=== PATIENT | male | born 1945 | race Caucasian/White ===

== ENCOUNTER 2016-07-29 06:53 | Day surgery (SDC) | payer OTHER ==
[2016-07-29] VITALS (10 sets, daily range): BP systolic 115–144; BP diastolic 62–79; PULSE 59–64; RESP 13–18; O2SAT 91–97
[~2016-07-29] VITALS: Ht 181.6 cm; Wt 106.5 kg
[~2016-07-29 06:53] MED LIST: AMLO10TA3 PO; ASCO-294 PO; ASPI-973 PO; ATEN100T PO; FINA5TAB9 PO; GLUC1CAP13 PO; HYDR25TA4 PO; LISI-567 PO; LOVA40TA PO; MAGN250T PO; MULT-1018 PO; OMEP20CA11 PO; TAMS0.4C98 PO; VITA150T PO
[2016-07-29] MEDS ORDERED: Ondansetron 2 mg/mL 2 mL Inj ONE (06:54)
[2016-07-29] MEDS ORDERED: EPHEDrine/NS 5 mg/mL 5 mL Syringe ONE (06:54)
[2016-07-29] MEDS ORDERED: Dexamethasone 4 mg/mL Inj ONE (06:54)
[2016-07-29] MEDS: Lactated Ringer's 1,000 ML IV SCH ×2 (07:01→09:22)
[2016-07-29] MEDS: Levofloxacin 500 mg/100 mL D5W IV SCH ×2 (09:22→09:24)
--- NOTE | 2016-07-29 10:01 | PCM.HPANE ---
Patient Data Surgeon Admitting Provider: Attending Provider:Amanda Harmon MD Primary Care Physician:Rich Carson MD Other Provider:[facility] Anesthesia Reason for Visit Acute Urinary Retention Ht/WT & BMI Height (Feet): 5 Height (Inches): 11.5 Weight (Kilograms): 106.5 Body Mass Index 32.00 Allergies Coded Allergies: No Known Allergies (Unverified , 05/17/16) Past Anesthesia History Anesthesia History: Denies:: Abnormal Airway, Anesthesia Reactions, Difficult Intubation, Fam Anesthesia Reaction Diabetes History Hx Diabetes?: No Type of Diabetes: Diet Controlled MRSA MRSA: No Medications Blood Thinner: Aspirin Hypertension Medication: Yes Home Meds Incl Beta Uma: Yes Date Beta Uma Taken: Jul 29, 2016 Time Beta Uma Taken: 529 Reported Medications Ascorbate Calcium (Vitamin C)500 Mg [id number] Mg PO DAILY 07/26/16 Tamsulosin (Flomax)0.4 Mg Capsule0.8 Mg PO DAILY Ref 0 07/26/16 Vitamin B Complex & Vit C No.4 (Super B Complex)150 Mg Ttuneh147 Mg PO DAILY 07/26/16 Omeprazole 20 Mg Capsule.dr20 Mg PO DAILY Ref 0 07/26/16 Multivitamin (Multi Vitamin Daily)1 Each Tablet1 Each PO DAILY 30 Days Ref 0 07/26/16 Magnesium 250 Mg Fxwfme538 Mg PO DAILY 07/26/16 Lovastatin 40 Mg Kkdygx41 Mg PO HS #30 TABLET Ref 0 07/26/16 Lisinopril 20 Mg Feqekn91 Mg PO DAILY 30 Days Ref 0 07/26/16 Hydrochlorothiazide 25 Mg Owsrsr77 Mg PO DAILY 30 Days Ref 0 07/26/16 Gluc HCl/Csa/Maximus Hy/Hyalur AC (Glucosamine Chondroitin Cap)1 Each Capsule1 Each PO DAILY 07/26/16 Finasteride 5 Mg Tablet5 Mg PO DAILY 30 Days Ref 0 07/26/16 Atenolol 100 Mg Jrizxp456 Mg PO DAILY Ref 0 07/26/16 Aspirin 81 Mg Zlxuth47 Mg PO DAILY Ref 0 07/26/16 Amlodipine 10 Mg Pvtqeg26 Mg PO DAILY Ref 0 07/26/16 Discontinued Scripts Tamsulosin (Flomax)0.4 Mg Capsule0.4 Mg PO DAILY #14 CAPSULE Ref 0 Prov:Jerrod Méndez DO 05/17/16 Cephalexin (Keflex)500 Mg Stgvkli360 Mg PO QID #28 CAPSULE Prov:Jerrod Méndez DO 05/17/16 History HEENT History: Positive for:: Hearing Problem Denies:: Abnormal Airway Cataracts Difficult Intubation Dysphagia Glaucoma Sinus Problem TMJ Cardiovascular History: Positive for:: Hypertension Denies:: AICD Abdominal Aortic Aneurism Cardiac Surgery Chest Pain Coronary Artery Disease Edema Heart Murmur Irregular Heartbeat Pacemaker Peripheral Vascular Hx of Respiratory Problem?: No Respiratory History: Denies:: Asthma COPD Emphysema Oxygen Administration Pneumonia Tuberculosis Use of C-PAP Machine Use of Inhalers / NEBS Hx Neurologic Problems?: No Neurological History: Denies:: CVA Dementia Dizziness Headaches Multiple Sclerosis Parkinson's Disease Seizures TIA Hx of GI Problems?: Yes Gastrointestinal History: Positive for:: Gastroesphageal Reflux Heartburn Denies:: Cirrhosis Gall Bladder Disease Hepatitis Liver Disease Rectal Bleeding Hx of Problems?: Yes Genitourinary History: Denies:: Kidney Stones Urinary Tract Infection Other Pertinent History: urinary retention current admission problem, current indwelling baig Male Hx: Positive for:: Prostate Problems (BPH current admission problem) Denies:: Scrotal Mass Testicular Surgery Skin History: Denies:: History Skin Disorders? (rash- near catheter bag) Pressure Ulcers Hx Musculoskeletal Problems?: Yes Musculoskeletal History: Positive for:: Back Injury (hx back surgery) Osteoarthritis (fingers) Denies:: Fibromyalgia Joint Replacement Myasthenia Gravis Systemic Lupus Hx of Psycho/Social Problems?: No Psycho Social History: Denies:: Anxiety Hx Depression Hx Surgeries?: Yes (back, knee) Hx Any Other Health Problems?: Yes Other History: Denies:: Cancer Thyroid Disease History Blood Transfusions: Positive for:: Accept Blood Products? Denies:: Blood Transfusions Hx Diabetes: No Hx Alcohol Use: No (former- not for 6 years)Hx Substance Use: NoHave You Smoked inLast 12 mo: No Stop/Bang Treated for Sleep Apnea?: No Do You Have a CPAP Machine?: No S-Snoring: Do You Snore Loudly: No T-Tired: feel tired, fatigued: No O-Obsered: Observed not breath: No P-Blood Pressure: treated: Yes B- Body Mass Index > 35 kg/m2: No A- Age over 50: Yes N- Neck Large Circumference: No G- Gender Male: Yes ANDREW Total Score: 3 Risk Assessment Category Category 1A: Patient has history of documented sleep apnea, and HAS NOT received any narcotic, sedative or anesthesia administration during this stay. Category 1B: Patient has history of documented sleep apnea, and HAS received any narcotic , sedative or anesthesia administration during this stay Category 2: Patient has SUSPECTED Obstructive Sleep Apnea, and HAS received any narcotic , sedative or anesthesia administration during this stay. Category 3: Patient has SUSPECTED Obstructive Sleep Apnea and HAS NOT received narcotic, sedative or anesthesia administration during this stay. Category 4: Outpatient in Procedural Areas with known sleep apnea or who screen positive for High Risk via the STOP/BANG questionnaire. Exam Exam Vital Signs Vital Signs Date Time Temp Pulse Resp B/P Pulse Ox O2 Delivery O2 Flow Rate FiO2 07/29/16 07:09 36.0 64 18 144/79 97 Room Air General Appearance: Alert, Oriented X3, Cooperative, No Acute Distress HEENT/AIRWAY: MP 2 Lungs: Clear to Auscultation, Normal Air Movement Heart: Exam Unremarkable, Regular Rate/Rhythm, No Murmurs/Rubs/Gallops Meds/Labs/Diagnostics Admission Meds Current Medications Lactated Ringer's (Lr) 1,000 ml @ 120 mls/hr Q8H20M IV Last administered on t 09:22; Start 07/29/16 at 05:00; Stop 07/29/16 at 13:19 Plan Impression Patient chart reviewed, patient interviewed and anesthestic plan with risks, benefits, and alternatives discussed, and informed consent obtained. NPO Status: 07/28/161929 ASA Physical Status: ASA2 Mod Systemic Disease Anesthetic Plan: GA Bene/Risks/Altern/Consents: Yes HP Complete Prior to Induction: Yes Marquez Fitzgerald MD Jul 29, 2016 10:01
[2016-07-29] MEDS ORDERED: Lactated Ringer's 500 ML IV PRN (10:03)
[2016-07-29] MEDS ORDERED: Lactated Ringer's 1,000 ML IV SCH (10:03)
[2016-07-29] MEDS ORDERED: Phenylephrine 10,000 mCg/mL Inj IVPUSH PRN (10:05)
[2016-07-29] MEDS ORDERED: Dexamethasone 4 mg/mL Inj IVPUSH PRN (10:05)
[2016-07-29] MEDS ORDERED: EPHEDrine Sulfate 50 mg/mL Inj IVPUSH PRN (10:05)
[2016-07-29] MEDS ORDERED: Labetalol 5 mg/mL 4 mL Inj IV PRN (10:05)
[2016-07-29] MEDS ORDERED: HYDROmorphone 1 mg/mL Inj IVPUSH PRN (10:05)
[2016-07-29] MEDS ORDERED: MetoCLOpramide 5 mg/mL 2 mL Inj IVPUSH PRN (10:05)
[2016-07-29] MEDS: fentaNYL-PF 50 mCg/mL 2 mL Inj IVPUSH PRN ×2 (11:34→11:43)
[2016-07-29] MEDS ORDERED: HYDROcodone-APAP 5-325 mg Tablet PO PRN (11:35)
--- NOTE | 2016-07-29 11:52 | OP ---
[address] [address] OPERATIVE REPORT PATIENT: KAZ LYNCH : 1945 MR#: [id number] ADMIT: 07/29/2016 JOB ID: [id number] DATE OF SURGERY: 07/29/2016 PREOPERATIVE DIAGNOSIS(ES): Urinary retention. POSTOPERATIVE DIAGNOSIS(ES): Urinary retention. PROCEDURE PERFORMED: Cystoscopy and transurethral resection of prostate. SURGEON: Amanda Harmon MD ENVELOPE FOLDING MACHINE OPERATOR: None. FINDINGS: 1. Bilateral orthotopic ureteral orifices. 2. Large intravesical lobe of prostate. 3. Coapted lobes of the prostate with the right lobe quite spherical in morphology and very much obstructing the urethral lumen. ANESTHESIA: General. ESTIMATED BLOOD LOSS: Less than 20 mL. DRAIN: An 18-Kyrgyz coude catheter to the bladder. SPECIMENS: Prostate chips. COMPLICATIONS: None. CONDITION: Stable. INDICATION FOR PROCEDURE: The patient is a 70-year-old gentleman with urinary retention reliant on Banuelos catheter. He has failed medical management and multiple voiding trials. DESCRIPTION OF PROCEDURE: After informed consent was obtained, the patient was taken to the operating room. A time-out was performed identifying correct patient, surgical site, and procedure. General anesthesia was smoothly induced. He was given intravenous antibiotics just prior to the start of the procedure. He was placed in the lithotomy position. All pressure points were identified and appropriately padded. His genitals were then prepped and draped in the usual sterile fashion. A 26-Kyrgyz resectoscope was applied to the patient's urethra and advanced into the bladder. The bladder was drained. Both ureteral orifices were seen in orthotopic position. The bladder base was hyperemic with large blood vessels coursing through it. There was a large intravesical lobe seen. There was hypertrophy of both right and left lobes within the urethral lumen, though the right prostatic lobe was extremely large and spherical. A 24-Kyrgyz resecting loop was used to resect the right and left lobes in piecemeal fashion from the bladder neck to just proximal to the verumontanum. The intravesical lobe was also resected in piecemeal fashion. An KOPIS MOBILE evacuator was used throughout the procedure to evacuate the prostate chips. The ureteral orifices were identified multiple times through the procedure and at the termination procedure, they were seen and left as undisturbed. There was excellent hemostasis at the end of the procedure. An 18-Kyrgyz coude catheter was placed into the patient's bladder and insufflated with 20 cc of sterile water and set to dependent drainage. The patient was then reversed from general anesthesia and taken to the PACU in good and stable condition. MARIA DE JESUS
--- NOTE | 2016-07-29 13:21 | PCM.ANEP1 ---
Post Anesthesia Phase 1 PACU Phase 1 Assessment Vital Signs Vital Signs Date Time Temp Pulse Resp B/P Pulse Ox O2 Delivery O2 Flow Rate FiO2 07/29/16 12:11 36.4 62 16 115/73 93 Nasal Cannula 2 07/29/16 12:06 60 16 118/66 92 Room Air 07/29/16 11:50 36.9 59 15 120/62 93 Nasal Cannula 3 07/29/16 11:40 60 15 121/64 93 Nasal Cannula 3 07/29/16 11:35 60 13 120/68 92 Nasal Cannula 3 07/29/16 11:30 60 15 118/68 93 Nasal Cannula 3 07/29/16 11:25 63 15 117/69 92 Nasal Cannula 3 07/29/16 11:20 37.0 63 15 115/66 91 Nasal Cannula 2 07/29/16 07:09 36.0 64 18 144/79 97 Room Air Anesthetic Administered: GA Level of Alertness: Awake, talking MERAZ's with Equal Strength: Yes Pain: No Nausea or Vomiting: No Oxygen Delivery: Nasal Cannula Lungs: Clear to Auscultation, Normal Air Movement Dermatome Level: Full Sensation Marquez Fitzgerald MD Jul 29, 2016 13:21
--- NOTE | 2016-07-29 13:22 | PCM.ANEP2 ---
Post Anesthesia Evaluation ASA/CMS Post Anesthesia VS in Patient's Normal Range?: Yes Resp Stable; Airway Patent?: Yes CV Function & Hydration Stable: Yes Mental Status Recovered?: Yes Pain control Satisfactory?: Yes N/V Control Satisfactory?: Yes Marquez Fitzgerald MD Jul 29, 2016 13:22
--- NOTE | 2016-08-01 16:41 | PATH ---
SURGICAL PATHOLOGY Attending Physician:Amanda Harmon, CASE STATUS: Signed Out PATIENT NAME: KAZ LYNCH PID: [id number] : 1945 DATE COLLECTED:07/29/2016 00:00 SPECIMEN: Prostate, Chips CLINICAL HISTORY: ACUTE URINARY RETENTION 1). RESECTED PROSTATE FINAL DIAGNOSIS: Prostate, TUR Fragments: Benign fibroglandular hyperplasia. No evidence of malignancy. ICD10 N40.1 GROSS DESCRIPTION: The specimen is received in formalin, labeled with the patient's name, sublabeled as resected prostate and consists of multiple fragments of ye-white rubbery prostatic tissue (22.8 g, 7.5 x 6.5 x 1.7 cm in aggregate). Section code: (A-G) prostatic tissue, treasury representative. 07/30/16 MICRO DESCRIPTION: Please see diagnosis. ICD-9 CODES: CPT CODES: 1: 63639 Electronically Signed Out Bridgett Matos MD [facility] Pathology [facility] [address], [place] [address] Technical component performed at [facility], [facility] [address], [place], [address]
== END 2016-07-29 23:59 | disposition home or self-care (01) ==
LOC: SAS 06:53
PROVIDERS: ATTEND Urology
DX: N40.1 Benign prostatic hyperplasia with lower urinary tract symptoms (principal); N36.8 Other specified disorders of urethra; R33.9 Retention of urine, unspecified; I10 Essential (primary) hypertension; K21.9 Gastro-esophageal reflux disease without esophagitis; Z87.891 Personal history of nicotine dependence; Z79.82 Long term (current) use of aspirin
CPT/HCPCS: 52601; J1100; J2405; J3010; J7120

== ENCOUNTER 2017-02-24 17:41 | Inpatient (IN) | payer OTHER, MEDICARE ==
[2017-02-24] VITALS (14 sets, daily range): BP systolic 92–132; BP diastolic 42–59; PULSE 72–91; RESP 16–20; O2SAT 88–97
[~2017-02-24] VITALS: Ht 182.9 cm; Wt 107.2 kg
[~2017-02-24 17:41] MED LIST changes: +Dexamethasone 4 mg/mL Inj ONE; +EPHEDrine/NS 5 mg/mL 5 mL Syringe ONE; -MAGN250T PO; +MAGN250T2 PO; +MetoCLOpramide 5 mg/mL 2 mL Inj ONE; +Ondansetron 2 mg/mL 2 mL Inj ONE; +Phenylephrine/NS 100 mCg/mL 10 mL Syringe IVPUSH ONE; +Propofol 10,000 mCg/mL 20 mL Inj ONE; +Rocuronium 10 mg/mL 5 mL Inj ONE; +Vasopressin 20 Unit/mL Inj ONE; +fentaNYL-PF 50 mCg/mL 2 mL Inj ONE
--- NOTE | 2017-02-24 17:58 | ED.REPORT ---
HPI-Abd Pain M 40 and Over Date of Service Feb 24, 2017 ED Provider: Dieter Carlson MD The pt is a 71 y/o male with a hx of HTN, BPH (s/p TURP 10 months ago), GERD, and borderline DM who presents to the ED complaining of worsening abdominal pain , onset yesterday. He initially had right lower quadrant abdominal pain that gradually became diffuse. Associated sx include nausea, dizziness, diaphoresis, lack of appetite, difficulty passing gas, and constipation. He had a small BM this morning. He denies vomiting. Nursing Notes Stated Complaint: ABDOMINAL PAIN Chief Complaint: Male Abdominal Pain Nursing Notes Reviewed: Yes Allergies: Coded Allergies: No Known Allergies (Unverified , 02/24/17) Scheduled Amlodipine (Amlodipine) 10 Mg Tablet 10 MG PO DAILY Ascorbate Calcium (Vitamin C) 500 Mg Tablet 1,000 MG PO QAM Aspirin (Aspirin) 81 Mg Tablet 81 MG PO DAILY Atenolol (Atenolol) 100 Mg Tablet 100 MG PO DAILY Gluc HCl/Csa/Maximus Hy/Hyalur AC (Glucosamine Chondroitin Cap) 1 Each Capsule 1 EACH PO DAILY Hydrochlorothiazide (Hydrochlorothiazide) 25 Mg Tablet 25 MG PO DAILY Lisinopril (Lisinopril) 20 Mg Tablet 20 MG PO DAILY Lovastatin (Lovastatin) 40 Mg Tablet 40 MG PO HS Magnesium (Magnesium) 250 Mg Tablet 250 MG PO DAILY Multivitamin (Multi Vitamin Daily) 1 Each Tablet 1 EACH PO QAM Omeprazole (Omeprazole) 20 Mg Capsule.dr 20 MG PO QAM Vitamin B Complex & Vit C No.4 (Super B Complex) 150 Mg Tablet 150 MG PO QAM General Time Seen by MD: 17:56 Chief Complaint Abdominal pain Hx Obtained From: Patient Arrived By: Walk-in Sudden in Onset?: Yes Onset Occurred: Yesterday Symptom Duration: Since onset Location: : RLQ Quality: Painful Radiation: : Does not radiate Severity: Current: Moderate Severity: Maximum: Severe Recent Healthcare: No recent doctor visit Past Medical History Past Medical History BPH (s/p TURP 10 months ago) Hypertension GERD Past Surgical History Knee Back TURP Smoking History Unknown if Ever Smoker Ambulatory Status Independent Review of Systems Reports: difficulty passing gas Reports: lack of appetite Reports: lack of appetite. GI: Reports: Abdominal pain, Constipation, Nausea, Denies: Vomiting Complete sys rev & neg: except as marked. Skin: Reports Diaphoresis Physical Exam Initial Vital Signs Vital Signs (First) Date Time Temp Pulse Resp B/P Pulse Ox O2 Delivery O2 Flow Rate FiO2 02/24/17 17:54 36.4 72 16 132/58 97 Room Air 02/24/17 19:33 3 Initial VS: Reviewed Head / Eyes: Atraumatic, Normocephalic Neck: Supple, Non-tender, Full range of motion Extremities: Vascular intact, Neuro intact, No swelling, No tenderness Skin: Warm, Dry, No cyanosis Neurologic: Alert, Oriented, Nonfocal General/Constitutional: Awake, Alert, Cooperative Distress / Hydration: Positive: Distress moderate Rigors Respiratory / Chest: Atraumatic, Breath sounds NL, Breath sounds = bilat, No respiratory distress, No rales, No rhonchi, No wheezing Cardiovascular: Heart rate NL, Regular rhythm, Heart sounds NL, No gallop, No murmurs, No rubs Abdomen: Atraumatic Bowel Sounds / Distention: Positive: Bowel sounds hyperactive, Distention moderate Tympanitic abdomen Right lower quadrant tenderness with guarding. Back: Atraumatic, Full range of motion, Painless range of motion Interpretation & Diagnostics Lab Results Interpretation Result Diagram: 02/24/17 1800 02/24/17 1800 Test 02/24/17 18:00 White Blood Count 13.6th/mm3 (3.8-10.1) Red Blood Count 5.05mil/mm3 (4.40-5.80) Hemoglobin 15.1g/dL (13.8-17.2) Hematocrit 43.4% (41.0-50.0) Mean Corpuscular Volume 85.9fL (81-100) Mean Corpuscular Hemoglobin 29.9pg (27.0-35.0) Mean Corpuscular Hemoglobin Concent 34.8% (32.0-37.0) Red Cell Distribution Width 14.0% (12.3-15.4) Platelet Count 149bil/L (150-400) Neutrophils (%) (Auto) 89.6% (40-74) Lymphocytes (%) (Auto) 4.7% (14-46) Monocytes (%) (Auto) 5.3% (4-12) Eosinophils (%) (Auto) 0.1% (0-5) Basophils (%) (Auto) 0.1% (0-3) Urine Color Yellow (YELLOW) Urine Appearance Clear (CLEAR,HAZY) Urine pH 7.0 (5.0-8.0) Urine Specific [place] 1.015 (1.003-1.035) Urine Protein Negativemg/dL (NEG,TRACE) Urine Glucose (UA) Negativemg/dL (NEGATIVE) Urine Ketones Negativemg/dL (NEGATIVE) Urine Occult Blood Trace (NEGATIVE) Urine Nitrite Negative (NEGATIVE) Urine Bilirubin Negative (NEGATIVE) Urine Urobilinogen Normalmg/dL (NORMAL) Urine Leukocyte Esterase Negative (NEGATIVE) Urine RBC 0-2/hpf (0-2) Urine WBC 0-5/hpf (0-5) Urine Epithelial Cells Moderate/hpf (NONE-MOD) Urine Crystals None seen (NONE SEEN) Urine Bacteria Few/hpf (NONE-FEW) Urine Hyaline Casts None/lpf (NONE) Urine Granular Casts None seen (NONE SEEN) Urine Waxy Casts None seen (NONE SEEN) Urine Red Blood Cell Casts None seen (NONE SEEN) Urine White Blood Cell Casts None seen (NONE SEEN) Urine Mucus Present (None Seen) Urine Trichomonas None seen (NONE SEEN) Urine Yeast None (NONE SEEN) Urinalysis Comment None Urine Culture Reflexed Not indicated Sodium Level 133mEq/L (134-144) Potassium Level 3.8mEq/L (3.5-5.2) Chloride Level 95mEq/L (97-108) Carbon Dioxide Level 22mmol/L (18-29) Blood Urea Nitrogen 23mg/dL (8-27) Creatinine 0.68mg/dL (0.76-1.27) Estimat Glomerular Filtration Rate 123mL/min (>59) Glucose Level 158mg/dL (60-99) Lactic Acid Level 1.4mmol/L (0.4-2.0) Calcium Level 8.8mg/dL (8.5-10.1) Magnesium Level 1.8mg/dL (1.6-2.6) Total Bilirubin 1.5mg/dL (0.0-1.2) Aspartate Amino Transf (AST/SGOT) 11U/L (0-50) Alanine Aminotransferase (ALT/SGPT) 12U/L (0-44) Alkaline Phosphatase 95U/L (25-160) Total Protein 7.1g/dL (6.4-8.4) Albumin 3.9g/dL (3.4-5.0) Lipase 20U/L (13-60) Hold Carter Top Tube Received (Received) ECG Interpretation ECG Interpretation: Sinus rhythm. Rate 87 Time: 19:38 Interpreted by: ED physician Normal ECG Interpretation: Normal ECG w/ rate of... (87. ) X-Ray Chest Interpretation Chest Xray Interpretation: IMPRESSION: Increased by basilar/retrocardiac opacity suggestive of bilateral pneumonia. Dictated by: Rocio Medrano M.D. on 02/24/2017 at 20:08 Approved by: Rocio Medrano M.D. on 02/24/2017 at 20:08 View: Portable, 1 view Interpretation / Wet Read by: Interpret - Radiologist CT Abd / Pelvis Interpretation IMPRESSION: 1. Enlarged inflamed appendix consistent with appendicitis. There is a borderline focus of extraluminal air near the proximal aspect of the appendix. In addition, there are 3 punctate foci of air along the lateral abdominal wall, superior to the appendix, adjacent to the descending colon. Despite lack of immediate proximity to the appendix, a small air perforation cannot be excluded. The above findings were discussed with Dr. Dieter Carlson on 02/24/17 at 7:35 PM. Dictated by: Rocio Medrano M.D. on 02/24/2017 at 19:31 Approved by: Rocio Medrano M.D. on 02/24/2017 at 19:37 Study type: Abdominal CT IV contrast Interpretation / Wet Read by: Interpret - Radiologist Re-Eval/Medical Decision Med Decision/Clinical Course 71-year-old male presenting with abdominal pain, exam and imaging are suggestive of acute appendicitis. The patient developed rigors as well in the emergency department. We gave him IV normal saline 1 L blood cultures were obtained. IV Zosyn was started and surgery was consulted. Source of Hx: Old records Time of Eval: 18:39 Re-Evaluation/Progress Note: Rechecked pt. His temperature is 37.3. Discussed the plan to do a CT. The pt understands and agrees with the plan. All questions answered. Time of Eval: 19:31 Re-Evaluation/Progress Note: Rechecked pt. He reports significant relief from pain, with a downward trend in his BP. His last meal was at 1600. Discussed the plan to keep him NPO and admit the pt for surgery. He understands and agrees with the plan. All questions answered. Consultation : Referral / Consult Name: Dayday Cartagena MD Consulted With: Surgeon Requested Call at: 19:28 Call Returned at: 19:42 On Car Supervisor: Will see patient, Agrees with eval, Agrees with plan, Accepts admit Note: Discussed the case in detail with Dr. Cartagena. He will come to the ED to see the pt. Counseled Regarding: Diagnosis, Lab results, Need for admission Discharge & Departure Primary Impression: Appendicitis Appendicitis type: acute appendicitis Acute appendicitis type: unspecified acute appendicitis type Qualified Code: K35.80 - Unspecified acute appendicitis Disposition: ADMITTED TO HOSPITAL Vital Signs - All Vital Signs Date Time Temp Pulse Resp B/P Pulse Ox O2 Delivery O2 Flow Rate FiO2 02/24/17 20:21 84 20 119/59 94 Nasal Cannula 4 02/24/17 19:33 94 Nasal Cannula 3 02/24/17 19:32 91 20 106/53 88 Room Air 02/24/17 17:54 36.4 72 16 132/58 97 Room Air Referrals: Rich Carson MD (PCP) Scribe Attestation Portions of this note were transcribed by Marcelino Milan. I,, personally performed the history,physical exam and medical decision-making;I reviewed and confirmed the accuracy of the information in the transcribed note. Signed by Dakota Dong. 02/24/17 copies to: Rich Carson MD, Donald L MD Feb 24, 2017 17:58 Marcelino Milan Feb 24, 2017 18:34
[2017-02-24] MEDS ORDERED: 0.9% Sodium Chloride 1,000 ML IV ONE (18:00)
[2017-02-24] MEDS ORDERED: Ondansetron 2 mg/mL 2 mL Inj IVPUSH PRN ×3 (18:00→23:25)
[2017-02-24 18:19] LABS: BASOPHILS % (AUTO) 0.1 % (0-3); EOSINOPHILS % (AUTO) 0.1 % (0-5); MONOCYTES % (AUTO) 5.3 % (4-12); Mean Corpuscular Hemoglobin 29.9 pg (27.0-35.0); Mean Corpuscular Volume 85.9 fL (81-100); NEUTROPHILS % (AUTO) 89.6 % (40-74); Platelet Count 149 bil/L (150-400)
[2017-02-24] MEDS: HYDROmorphone 1 mg/mL Inj IVPUSH PRN ×2 (18:30→18:45)
[2017-02-24 18:31] LABS: APPEARANCE,URINE CLEAR (CLEAR,HAZY); COLOR,URINE YELLOW (YELLOW)
[2017-02-24 18:32] LABS: OCCULT BLOOD,URINE TRACE (NEGATIVE); UROBILINOGEN,URINE NORMAL (NORMAL)
[2017-02-24 18:39] LABS: Magnesium 1.8 mg/dL (1.6-2.6)
[2017-02-24] MEDS ORDERED: Piperacillin-Tazo 3.375 Gm Inj 3.375 GM in Dextrose 5% Minibag Plus 50 ML IV ONE (19:30)
--- NOTE | 2017-02-24 19:39 | DRSVH ---
PROCEDURE: CT ABDOMEN AND PELVIS WITH CONTRAST ([id number]) INDICATIONS: abd pain TECHNIQUE: After the administration of intravenous contrast, 5 mm thick sections acquired from the diaphragm to the symphysis. 5 mm coronal and sagittal reformats were acquired. For radiation dose reduction, the following was used: automated exposure control, adjustment of mA and/or kV according to patient edwardo hdz. COMPARISON: [facility], CT, CT ABD PELVIS W&WO CON IVP, 09/22/2015, 15:37. FINDINGS: Image quality: Excellent. ABDOMEN: Lung bases: Lung bases are clear. Heart size is normal. Solid organs: Liver and spleen are normal in size and enhancement. Gallbladder is unremarkable. Bi liary system is non dilated. Pancreas enhances normally. No adrenal nodules. Kidneys demonstrate n ormal size and enhancement, without hydronephrosis. Bilateral renal cysts are present. Peritoneum and bowel: Bowel loops are nonobstructed. The appendix is enlarged measuring 9 mm in guallpa sverse dimension with surrounding inflammatory change. Questionable punctate appendicolith. Questiona ble punctate periappendiceal air. In addition, there are 3 punctate areas of air identified along the lateral right abdominal wall, superior to the appendix. In addition, there is a punctate focus of ai r along the proximal appendix, which is borderline extraluminal in appearance. Nodes and vessels: No retroperitoneal or mesenteric adenopathy by size criteria. Aorta and inferior vena cava are normal in size. Miscellaneous: No ventral hernias. PELVIS: Genitourinary: Bladder wall thickness is normal. Miscellaneous: No inguinal hernias or adenopathy. Bones: No suspicious bony lesions. No vertebral body compression fractures. IMPRESSION: 1. Enlarged inflamed appendix consistent with appendicitis. There is a borderline focus of extralumin al air near the proximal aspect of the appendix. In addition, there are 3 punctate foci of air along the lateral abdominal wall, superior to the appendix, adjacent to the descending colon. Despite lack of immediate proximity to the appendix, a small air perforation cannot be excluded. The above findings were discussed with Dr. Dieter Carlson on 02/24/17 at 7:35 PM. Dictated by: Rocio Medrano M.D. on 02/24/2017 at 19:31 Approved by: Rocio Medrano M.D. on 02/24/2017 at 19:37
--- NOTE | 2017-02-24 20:10 | DRSVH ---
PROCEDURE: X-RAY CHEST ONE VIEW, PORTABLE ([id number]) INDICATIONS: pre operation TECHNIQUE: One view of the chest was acquired. COMPARISON: None. FINDINGS: Surgical changes and devices: None. Lungs and pleura: Mild appearance of increased by basilar/retrocardiac opacities. Mediastinum: Mediastinal contours appear normal. Heart size is normal. Bones and chest wall: No suspicious bony lesions. Overlying soft tissues appear unremarkable. IMPRESSION: Increased by basilar/retrocardiac opacity suggestive of bilateral pneumonia. Dictated by: Rocio Medrano M.D. on 02/24/2017 at 20:08 Approved by: Rocio Medrano M.D. on 02/24/2017 at 20:08
--- NOTE | 2017-02-24 20:12 | PCM.HPANE ---
Patient Data Date of Service: Feb 24, 2017 Surgeon Admitting Provider: Attending Provider: Primary Care Physician:Rich Carson MD Other Provider: Reason for Visit Abdominal Pain Ht/WT & BMI Height (Feet): 6 Height (Inches): 0 Weight (Kilograms): 104.55 Body Mass Index Allergies Coded Allergies: No Known Allergies (Unverified , 02/24/17) Past Anesthesia History Anesthesia History: Denies:: Abnormal Airway, Anesthesia Reactions, Difficult Intubation, Fam Anesthesia Reaction Diabetes History Hx Diabetes?: No Type of Diabetes: Diet Controlled MRSA MRSA: No Medications Blood Thinner: Aspirin Hypertension Medication: Yes Home Meds Incl Beta Uma: Yes Reported Medications Ascorbate Calcium (Vitamin C)500 Mg Tablet1,000 Mg PO QAM 07/26/16 Vitamin B Complex & Vit C No.4 (Super B Complex)150 Mg [id number] Mg PO QAM 07/26/16 Omeprazole 20 Mg Capsule.dr20 Mg PO QAM Ref 0 07/26/16 Multivitamin (Multi Vitamin Daily)1 Each Tablet1 Each PO QAM 30 Days Ref 0 07/26/16 Magnesium 250 Mg Oiklma643 Mg PO DAILY 07/26/16 Lovastatin 40 Mg Dtqlnq47 Mg PO HS #30 TABLET Ref 0 07/26/16 Lisinopril 20 Mg Qahfrj29 Mg PO DAILY 30 Days Ref 0 07/26/16 Hydrochlorothiazide 25 Mg Ungjxe49 Mg PO DAILY 30 Days Ref 0 07/26/16 Gluc HCl/Csa/Maximus Hy/Hyalur AC (Glucosamine Chondroitin Cap)1 Each Capsule1 Each PO DAILY 07/26/16 Atenolol 100 Mg Waomee332 Mg PO DAILY Ref 0 07/26/16 Aspirin 81 Mg Eubgks58 Mg PO DAILY Ref 0 07/26/16 Amlodipine 10 Mg Tknyrz05 Mg PO DAILY Ref 0 07/26/16 Discontinued Reported Medications Tamsulosin (Flomax)0.4 Mg Capsule0.8 Mg PO HS Ref 0 07/26/16 Finasteride 5 Mg Tablet5 Mg PO QAM 30 Days Ref 0 07/26/16 History History of ENT Problems?: No HEENT History: Positive for:: Hearing Problem Denies:: Abnormal Airway Cataracts Difficult Intubation Dysphagia Sinus Problem TMJ Denture Type: None Teeth Condition: Within Normal Limits Hx of Heart Problems?: Yes Cardiovascular History: Positive for:: Edema Hypertension Denies:: AICD Abdominal Aortic Aneurism Cardiac Surgery Chest Pain Heart Murmur Irregular Heartbeat Pacemaker Hx of Respiratory Problem?: No Respiratory History: Denies:: Asthma COPD Emphysema Oxygen Administration Pneumonia Tuberculosis Use of C-PAP Machine Hx Neurologic Problems?: No Neurological History: Denies:: CVA Dementia Dizziness Headaches Multiple Sclerosis Parkinson's Disease Seizures Hx of GI Problems?: Yes Gastrointestinal History: Positive for:: Gastroesphageal Reflux Hx of Problems?: Yes Genitourinary History: Denies:: HX of Hemodialysis Kidney Stones Urinary Tract Infection HX of Peritoneal Dialysis: No Male Hx: Positive for:: Prostate Problems (hx BPH s/p TURP) Denies:: Scrotal Mass Testicular Surgery Skin History: Denies:: History Skin Disorders? (rash- near catheter bag) Pressure Ulcers Hx Musculoskeletal Problems?: Yes Musculoskeletal History: Positive for:: Back Injury (hx back surgery) Denies:: Joint Replacement Systemic Lupus Hx of Psycho/Social Problems?: No Psycho Social History: Denies:: Anxiety Bipolar Disorder Hx Depression Suicide Attempt Hx Surgeries?: Yes (back, knee, TURP) Hx Any Other Health Problems?: Yes Other History: Denies:: Cancer Thyroid Disease History Blood Transfusions: Positive for:: Accept Blood Products? Denies:: Blood Transfuse Reaction Blood Transfusions Hx Diabetes: No Hx Alcohol Use: No (former- not for 6 years)Hx Substance Use: No Smoking Status: Unknown if Ever Smoker Have You Smoked inLast 12 mo: No Stop/Bang Treated for Sleep Apnea?: No Do You Have a CPAP Machine?: No S-Snoring: Do You Snore Loudly: Yes T-Tired: feel tired, fatigued: No O-Obsered: Observed not breath: No P-Blood Pressure: treated: Yes B- Body Mass Index > 35 kg/m2: No A- Age over 50: Yes N- Neck Large Circumference: No G- Gender Male: Yes ANDREW Total Score: 3 ANDREW Risk Assessment: High Risk, =/>3 Yes ANDREW Category 2: Yes Risk Assessment Category Category 1A: Patient has history of documented sleep apnea, and HAS NOT received any narcotic, sedative or anesthesia administration during this stay. Category 1B: Patient has history of documented sleep apnea, and HAS received any narcotic , sedative or anesthesia administration during this stay Category 2: Patient has SUSPECTED Obstructive Sleep Apnea, and HAS received any narcotic , sedative or anesthesia administration during this stay. Category 3: Patient has SUSPECTED Obstructive Sleep Apnea and HAS NOT received narcotic, sedative or anesthesia administration during this stay. Category 4: Outpatient in Procedural Areas with known sleep apnea or who screen positive for High Risk via the STOP/BANG questionnaire. Exam Exam Vital Signs Vital Signs Date Time Temp Pulse Resp B/P Pulse Ox O2 Delivery O2 Flow Rate FiO2 02/24/17 19:33 94 Nasal Cannula 3 02/24/17 19:32 91 20 106/53 88 Room Air 02/24/17 17:54 36.4 72 16 132/58 97 Room Air General Appearance: Alert, Oriented X3, Cooperative HEENT/AIRWAY: MP 2, Neck Movement (Full), Mouth Opening (Wide) Lungs: Clear to Auscultation, Normal Air Movement Heart: Regular Rate/Rhythm, Normal S1, Normal S2 Meds/Labs/Diagnostics Admission Meds Current Medications Sodium Chloride (Normal Saline) 1,000 ml @ 0 mls/hr Q0M ONCE IV Last administered on 02/24/17t 18:30; Start 02/24/17 at 18:00; Stop 02/24/17 at 18:02; Status DC Labs Test 02/24/17 18:00 White Blood Count 13.6th/mm3 (3.8-10.1) Red Blood Count 5.05mil/mm3 (4.40-5.80) Hemoglobin 15.1g/dL (13.8-17.2) Hematocrit 43.4% (41.0-50.0) Mean Corpuscular Volume 85.9fL (81-100) Mean Corpuscular Hemoglobin 29.9pg (27.0-35.0) Mean Corpuscular Hemoglobin Concent 34.8% (32.0-37.0) Red Cell Distribution Width 14.0% (12.3-15.4) Platelet Count 149bil/L (150-400) Neutrophils (%) (Auto) 89.6% (40-74) Lymphocytes (%) (Auto) 4.7% (14-46) Monocytes (%) (Auto) 5.3% (4-12) Eosinophils (%) (Auto) 0.1% (0-5) Basophils (%) (Auto) 0.1% (0-3) Urine Color Yellow (YELLOW) Urine Appearance Clear (CLEAR,HAZY) Urine pH 7.0 (5.0-8.0) Urine Specific [place] 1.015 (1.003-1.035) Urine Protein Negativemg/dL (NEG,TRACE) Urine Glucose (UA) Negativemg/dL (NEGATIVE) Urine Ketones Negativemg/dL (NEGATIVE) Urine Occult Blood Trace (NEGATIVE) Urine Nitrite Negative (NEGATIVE) Urine Bilirubin Negative (NEGATIVE) Urine Urobilinogen Normalmg/dL (NORMAL) Urine Leukocyte Esterase Negative (NEGATIVE) Urine RBC 0-2/hpf (0-2) Urine WBC 0-5/hpf (0-5) Urine Epithelial Cells Moderate/hpf (NONE-MOD) Urine Crystals None seen (NONE SEEN) Urine Bacteria Few/hpf (NONE-FEW) Urine Hyaline Casts None/lpf (NONE) Urine Granular Casts None seen (NONE SEEN) Urine Waxy Casts None seen (NONE SEEN) Urine Red Blood Cell Casts None seen (NONE SEEN) Urine White Blood Cell Casts None seen (NONE SEEN) Urine Mucus Present (None Seen) Urine Trichomonas None seen (NONE SEEN) Urine Yeast None (NONE SEEN) Urinalysis Comment None Urine Culture Reflexed Not indicated Sodium Level 133mEq/L (134-144) Potassium Level 3.8mEq/L (3.5-5.2) Chloride Level 95mEq/L (97-108) Carbon Dioxide Level 22mmol/L (18-29) Blood Urea Nitrogen 23mg/dL (8-27) Creatinine 0.68mg/dL (0.76-1.27) Estimat Glomerular Filtration Rate 123mL/min (>59) Glucose Level 158mg/dL (60-99) Lactic Acid Level 1.4mmol/L (0.4-2.0) Calcium Level 8.8mg/dL (8.5-10.1) Magnesium Level 1.8mg/dL (1.6-2.6) Total Bilirubin 1.5mg/dL (0.0-1.2) Aspartate Amino Transf (AST/SGOT) 11U/L (0-50) Alanine Aminotransferase (ALT/SGPT) 12U/L (0-44) Alkaline Phosphatase 95U/L (25-160) Total Protein 7.1g/dL (6.4-8.4) Albumin 3.9g/dL (3.4-5.0) Lipase 20U/L (13-60) Hold Carter Top Tube Received (Received) Plan Impression Patient chart reviewed, patient interviewed and anesthestic plan with risks, benefits, and alternatives discussed, and informed consent obtained. NPO per Anesth. Guidelines: No (Solids at 1400, clears at 1900) ASA Physical Status: ASA2 Plus Emergency Anesthetic Plan: GA Bene/Risks/Altern/Consents: Yes HP Complete Prior to Induction: Yes Jake Ashby MD Feb 24, 2017 20:12
[2017-02-24] MEDS ORDERED: Lactated Ringer's 1,000 ML IV SCH (20:28)
[2017-02-24] MEDS ORDERED: Lactated Ringer's 500 ML IV PRN (20:28)
[2017-02-24] MEDS ORDERED: Phenylephrine 10,000 mCg/mL Inj IVPUSH PRN (20:30)
[2017-02-24] MEDS ORDERED: Dexamethasone 4 mg/mL Inj IVPUSH PRN (20:30)
[2017-02-24] MEDS ORDERED: MetoCLOpramide 5 mg/mL 2 mL Inj IVPUSH PRN (20:30)
[2017-02-24] MEDS ORDERED: fentaNYL-PF 50 mCg/mL 2 mL Inj IVPUSH PRN (20:30)
[2017-02-24] MEDS ORDERED: EPHEDrine Sulfate 50 mg/mL Inj IVPUSH PRN (20:30)
[2017-02-24] MEDS ORDERED: HYDROmorphone 1 mg/mL Inj IVPUSH PRN (20:30)
[2017-02-24] MEDS ORDERED: Labetalol 5 mg/mL 20 mL Inj IV PRN (20:30)
[2017-02-24] MEDS ORDERED: Atropine 0.4 mg/mL Inj IVPUSH PRN (20:30)
[2017-02-24] MEDS ORDERED: hydrALAZINE 20 mg/mL Inj IVPUSH PRN (20:30)
[2017-02-24] MEDS ORDERED: Lactated Ringer's 1,000 ML IV ONE ×2 (20:40→21:23)
[2017-02-24] MEDS ORDERED: Bupivacaine-MPF 0.5% 30 mL Inj INFILTRATE ONE (21:00)
--- NOTE | 2017-02-24 21:40 | HP ---
[address] [address] HISTORY AND PHYSICAL PATIENT: KAZ LYNCH : 1945 MR#: [id number] ADMIT: 02/24/2017 JOB ID: [id number] CHIEF COMPLAINT: A 71-year-old gentleman with appendicitis seen in consultation at the request of Dieter Carlson MD, in the emergency department. HISTORY OF PRESENT ILLNESS: The patient is a 71-year-old gentleman in his usual state of health until a week ago when he started feeling some loss of appetite and vague discomfort in his abdomen. The pain really got worse over the last 48 hours, prompting him to come to the emergency department. It started in the right lower abdomen and got more diffuse. He had some nausea, dizziness, sweating, and had a small bowel movement this morning. He has had no vomiting. He continues to have a few bites of food and is anxious to have some liquid by mouth. OTHER MEDICAL PROBLEMS: 1. Hypertension. 2. Obesity. 3. Hyperlipidemia. 4. Benign prostatic hyperplasia. 5. Gastroesophageal reflux disease. PRIOR OPERATIONS: 1. Transurethral resection of prostate. 2. Back surgery. 3. Knee surgery. SOCIAL HISTORY: He is retired from being a machinist mechanic. He is active. He smoked over 40 years ago but not since then. FAMILY HISTORY: No family history of cancer, heart disease, appendicitis, or inflammatory bowel disease. REVIEW OF SYSTEMS: Twelve-point review of systems negative other than the pertinent positives noted in the history of present illness and other medical problems. MEDICATIONS: 1. Amlodipine. 2. Baby aspirin. 3. Atenolol. 4. Hydrochlorothiazide. 5. Lisinopril. 6. Lovastatin. 7. Omeprazole. 8. Vitamins. ALLERGIES: No known drug allergies. INVESTIGATIONS: The last colonoscopy was 10 years ago. Labs from February 24, 2017: WBC 13.6, hemoglobin 15.1, platelet count 149. Creatinine 0.68, glucose 158. Bilirubin 1.5, albumin 3.9, lactate 1.4. Chest x-ray: Some bilateral retrocardiac opacification thought to be concerning for consolidation. CT abdomen/pelvis with contrast on February 24, 2017 showed enlarged appendix to 9 mm with the surrounding inflammation. Small amount of extraluminal air. PHYSICAL EXAM: A 71-year-old gentleman in no acute distress. BMI 31.3, temperature 36.4, pulse 84, blood pressure 119/59, saturating 94% on 4 L nasal cannula. Eyes: Normal pupils, conjunctivae. Ears, nose, and throat: Normal external appearance. Neck: No adenopathy or jugular venous distention. Respiratory: Normal effort, clear to auscultation. Cardiovascular: Regular rate and rhythm. Gastrointestinal: Focally tender to palpation in the right lower quadrant. Protuberant abdomen. Genitourinary: Deferred. Neurologic: No gross deficits. Psych: Alert, appropriate. Skin: Normal. Musculoskeletal: Normal strength in extremities. ASSESSMENT AND PLAN: Acute appendicitis, possibly perforated. Discussed the pathophysiology and treatment rationale for appendicitis and recommended IV antibiotic therapy and laparoscopic appendectomy. After discussing the risks, benefits, and alternatives, he and his wished to proceed and we will go ahead accordingly.
--- NOTE | 2017-02-24 23:09 | PCM.SURGPO ---
Immediate Operative Note Date of Surgery: Feb 24, 2017 Pre Operative Diagnosis Appendicitis Post Operative Diagnosis Gangrenous, perforated Appendicitis with diffuse peritonitis Umbilical Hernia Procedure Laparoscopic Appendectomy Primary Umbilical Hernia repair Laparoscopic abdominal washout Surgeon and Application Development Liaison Surgeon: Dayday Cartagena MD Assistants: Alexander Spangler, PAC Findings Gangrenous Appendicitis with perforation Complications There were no periprocedural complications identified. Surgical Specimen Removed: Yes Specimen sent to Pathology: Yes Anesthetic Administered: GA Grafts, Implants: None Output, Estimated Blood Loss: 2 Blood Admin during surgery: No Attending Statement Mat Making Machine Tender listed was medically necessary for the successful completion of the case Dayday Cartagena MD Feb 24, 2017 23:09
--- NOTE | 2017-02-24 23:18 | PCM.ANEP1 ---
Post Anesthesia PACU Phase 1 Assessment Date of Service: Feb 24, 2017 Vital Signs Vital Signs Date Time Temp Pulse Resp B/P Pulse Ox O2 Delivery O2 Flow Rate FiO2 02/24/17 23:14 76 20 100/53 91 Simple Mask 8 02/24/17 23:10 76 19 92/42 93 Simple Mask 8 02/24/17 23:06 36.8 80 18 112/52 92 Simple Mask 8 02/24/17 20:30 36.4 84 20 119/59 94 Nasal Cannula 4 02/24/17 20:21 84 20 119/59 94 Nasal Cannula 4 02/24/17 19:33 94 Nasal Cannula 3 02/24/17 19:32 91 20 106/53 88 Room Air 02/24/17 17:54 36.4 72 16 132/58 97 Room Air Anesthetic Administered: GA Level of Alertness: Awake, talking MERAZ's with Equal Strength: Yes Pain: No (no current pain, s/p pain medication given) Nausea or Vomiting: No CV Function & Hydration Stable: Yes Airway Device: Oxygen Delivery: Simple Mask Lungs: Normal Air Movement Dermatome Level: Full Sensation PACU Phase 2 Assessment Complications: No Follow up Care: N/A Patient Instructions Provided: N/A Jake Ashby MD Feb 24, 2017 23:18
[2017-02-25 00:24] VITALS: BP 102/61; PULSE 73; RESP 20; O2SAT 95
[2017-02-25] MEDS: Piperacillin-Tazo 3.375 Gm Inj 3.375 GM in Dextrose 5% Minibag Plus 50 ML IV SCH ×3 (01:02→18:01)
[2017-02-25] MEDS ORDERED: 0.9% Sodium Chloride 100 ML ONE (01:16)
[2017-02-25] MEDS: Acetaminophen IV 1,000 MG in IV Premix 1 EACH IV SCH ×2 (01:18→09:04)
--- NOTE | 2017-02-25 02:13 | OP ---
[address] [address] OPERATIVE REPORT PATIENT: KAZ LYNCH : 1945 MR#: [id number] ADMIT: 02/24/2017 JOB ID: [id number] DATE OF SURGERY: 02/24/2017 PREOPERATIVE DIAGNOSIS(ES): Acute appendicitis. POSTOPERATIVE DIAGNOSIS(ES): 1. Acute gangrenous, perforated appendicitis with diffuse peritonitis. 2. Umbilical hernia. PROCEDURE PERFORMED: 1. Laparoscopic appendectomy. 2. Laparoscopic abdominal washout. 3. Primary repair of umbilical hernia. SURGEON: Dayday Cartagena MD. CONTAINER MAKER: Alexander Spangler PA-C. INDICATIONS: The patient is a 71-year-old gentleman who has been sick for almost a week which has gotten worse in the last couple of days, prompting him to come to the emergency department. In the emergency department he was evaluated and his white count was over [address] was concerning for appendicitis, possibly perforated, prompting a surgical consultation. After discussing the risks, benefits and alternatives, he was brought to the operating room for laparoscopic appendectomy. PROCEDURE DETAILS: He was placed in the supine position, underwent smooth induction of general anesthesia, and we made an infraumbilical incision and noticed an umbilical hernia. I then circumferentially dissected the umbilical hernia defect and detached the umbilical skin from the abdominal wall fascia. Then entered the abdomen using open Robin technique through the umbilical hernia defect. I then obtained pneumoperitoneum and placed two 5 mm ports, one in the suprapubic location and the other in the left lower quadrant location. I did notice pus throughout the abdomen. I was able to visualize the walled off gangrenous appendix in the right lower quadrant surrounded by the fat pad up Treves and the sigmoid colon. I was able to mobilize it bluntly off the retroperitoneum and the appendiceal mesentery without too much bleeding. I mobilized the appendix all the way to the base on the cecum, but the base of the appendix did not appear too healthy. I tried to mobilize the cecum off the retroperitoneum, but I was only partially successful given the inflammation in the cecum. When I traced the terminal ileum into the cecum, the ileocecal junction appeared to be immediately posterior to the appendiceal base. Given these findings, I had to choose between performing a right hemicolectomy or trying to control the appendiceal base in the given location. So I chose to staple the appendiceal base with a 45 mm Endo-LUIS stapler. I then placed the appendix in an EndoCatch bag and tried to bring the omentum down to cover the cecum, but he did not have much omental fat, and I was not able to make it reach. I then irrigated and suctioned out all the fluid from all quadrants of the abdomen and placed a #19 NANCY through the suprapubic port site to drain the pelvis and the right lower quadrant. After that I desufflated the abdomen, closed the umbilical hernia defect in the fascia with a [id number] 0 PDS suture. I tacked the umbilical skin down and then closed the skin incisions with 4-0 Monocryl. Steri-Strips and sterile dressing were applied. The patient was recovered from anesthesia and was taken to the recovery room in stable condition.
[2017-02-25] MEDS: Dextrose 5% Lactated Ringer's 1,000 ML IV SCH ×4 (02:19→21:55)
[2017-02-25 05:55] VITALS: BP 124/71; PULSE 63; RESP 20; O2SAT 95
[2017-02-25 08:44] VITALS: BP 125/66; PULSE 68; RESP 20; O2SAT 96
--- NOTE | 2017-02-25 10:10 | PROG NOTE ---
[address] [address] PROGRESS NOTE PATIENT: KAZ LYNCH : 1945 MR#: [id number] ADMIT: 02/24/2017 JOB ID: [id number] DATE: 02/25/2017 SUBJECTIVE: The patient is seen in followup. He is doing well today with minimal abdominal pain. He has no nausea. He is urinating without difficulty. OBJECTIVE: Temperature 36.4, pulse 68, blood pressure 125/66, saturation 96% on oxygen mask. General: He is sitting up in bed, in no acute distress. Chest is clear. Heart: Regular rate and rhythm. No murmurs. Abdomen is distended but soft. His incisions are clean with no erythema. His NANCY drain is draining hesham pus. Drain output overnight was 150 cc. ASSESSMENT AND PLAN: A 71-year-old man postoperative day one, status post laparoscopic appendectomy for gangrenous appendicitis with diffuse purulent peritonitis. He is doing well clinically. He will be maintained on broad-spectrum IV antibiotics. The patient. We will check a white blood cell count in several days. NANCY drain will be continued. Diet can be advanced. Home medicines will be restarted.
[2017-02-25] MEDS: Pantoprazole 20 mg ER24 Tablet PO SCH (10:41)
[2017-02-25 12:41] VITALS: BP 121/67; PULSE 68; RESP 20; O2SAT 94
[2017-02-25 20:06] VITALS: BP 122/66; PULSE 69; RESP 20; O2SAT 95
[2017-02-26] MEDS: Piperacillin-Tazo 3.375 Gm Inj 3.375 GM in Dextrose 5% Minibag Plus 50 ML IV SCH ×3 (01:00→17:31)
[2017-02-26 05:04] VITALS: BP 140/88; PULSE 77; RESP 18; O2SAT 94
[2017-02-26 08:24] VITALS: BP 153/69; PULSE 81; RESP 18; O2SAT 94
--- NOTE | 2017-02-26 10:07 | PROG NOTE ---
[address] [address] PROGRESS NOTE PATIENT: KAZ LYNCH : 1945 MR#: [id number] ADMIT: 02/24/2017 JOB ID: [id number] DATE: 02/26/2017 SUBJECTIVE: The patient is seen in followup. He is doing fine. He has minimal abdominal pain, no nausea. He was complaining of some upper abdominal discomfort today, possibly acid reflux related. OBJECTIVE: Temperature 36.8, pulse 81, blood pressure 153/69, saturation 94% on 2 liters. General: He is resting in bed in no acute distress. Chest is clear. Heart regular rate and rhythm, no murmurs. Abdomen is soft, nondistended. His incisions are clean with no erythema. NANCY drain is more serous today, output overnight was 50 cc, total output yesterday was 305 cc. ASSESSMENT AND PLAN: A 71-year-old man postoperative day two, status post laparoscopic appendectomy for gangrenous appendicitis with diffuse purulent peritonitis. He is doing well clinically. We will continue the current diet while awaiting return of bowel function. We will check a CBC tomorrow. Broad-spectrum antibiotics will be continued.
[2017-02-26] MEDS: Polyethylene Glycol (PEG) 17 Gm Powder PO SCH (10:13)
[2017-02-26] MEDS: Pantoprazole 20 mg ER24 Tablet PO SCH (10:16)
[2017-02-26 13:42] VITALS: BP 119/69; PULSE 73; RESP 18; O2SAT 93
[2017-02-26] MEDS: Dextrose 5% Lactated Ringer's 1,000 ML IV SCH ×3 (14:07→23:21)
[2017-02-26 20:15] VITALS: BP 122/71; PULSE 73; RESP 20; O2SAT 96
[2017-02-27 00:15] VITALS: BP 131/70; PULSE 84; RESP 20; O2SAT 95
[2017-02-27] MEDS: Piperacillin-Tazo 3.375 Gm Inj 3.375 GM in Dextrose 5% Minibag Plus 50 ML IV SCH ×3 (01:42→17:07)
[2017-02-27 04:45] VITALS: BP 146/73; PULSE 70; RESP 20; O2SAT 94
[2017-02-27] MEDS: Dextrose 5% Lactated Ringer's 1,000 ML IV SCH ×3 (07:21→23:21)
[2017-02-27 07:53] LABS: BASOPHILS % (AUTO) 0 % (0-3); MONOCYTES % (AUTO) 6.4 % (4-12); Mean Corpuscular Hemoglobin 29.8 pg (27.0-35.0); NEUTROPHILS % (AUTO) 82.9 % (40-74); Platelet Count 116 bil/L (150-400)
[2017-02-27] MEDS: Pantoprazole 20 mg ER24 Tablet PO SCH (08:46)
[2017-02-27] MEDS: Polyethylene Glycol (PEG) 17 Gm Powder PO SCH (08:47)
--- NOTE | 2017-02-27 13:06 | PROG NOTE ---
[address] [address] PROGRESS NOTE PATIENT: KAZ LYNCH : 1945 MR#: [id number] ADMIT: 02/24/2017 JOB ID: [id number] DATE: 02/27/2017 SUBJECTIVE: The patient is seen in followup. He is improving. He is passing some flatus but has not had a bowel movement yet. He has no nausea. His abdominal pain is minimal and he no longer thinks he needs narcotics. OBJECTIVE: Temperature 36.8, pulse 70, blood pressure 146/73, saturation 94% on 2 L. General: He is resting in bed in no acute distress. Chest is clear. Heart: Regular rate and rhythm. No murmurs. Abdomen is obese, but soft, mildly distended. Bowel tones are present. There is no erythema of his incisions. NANCY drain has serous output, output overnight was 145 cc. LABORATORIES: White count is 7.0, hematocrit 39.8, platelets 116. ASSESSMENT AND PLAN: A 71-year-old man with gangrenous appendicitis and diffuse purulent peritonitis, status post laparoscopic appendectomy. He is doing well clinically. His diet will be advanced to a soft general diet. IV antibiotics will be continued. NANCY drain will be continued. He may be ready for discharge from the hospital tomorrow.
[2017-02-27 15:31] VITALS: BP 128/77; PULSE 66; RESP 18; O2SAT 95
[2017-02-27 20:00] VITALS: BP 127/69; PULSE 66; RESP 16; O2SAT 95
[2017-02-28] MEDS: Piperacillin-Tazo 3.375 Gm Inj 3.375 GM in Dextrose 5% Minibag Plus 50 ML IV SCH ×3 (00:59→18:10)
[2017-02-28 05:10] VITALS: BP 150/78; PULSE 70; RESP 16; O2SAT 94
[2017-02-28] MEDS: Dextrose 5% Lactated Ringer's 1,000 ML IV SCH ×3 (07:21→23:21)
[2017-02-28] MEDS: Polyethylene Glycol (PEG) 17 Gm Powder PO SCH (08:43)
[2017-02-28] MEDS: Pantoprazole 20 mg ER24 Tablet PO SCH (08:43)
--- NOTE | 2017-02-28 11:47 | PCM.PNSURG ---
Subjective Date of Service: Feb 28, 2017 Visit Information: Perforated Appendicitis with Diffuse peritonitis s/p Laparoscopic Appendectomy Post-Op Day # 4 Date of Admission: Feb 24, 2017 at 20:45 Hospital Day # 5 Subjective: Tolerating food, feeling better every day Objective Vital Sign- Last 8 Hours Date Time Temp Pulse Resp B/P Pulse Ox O2 Delivery O2 Flow Rate FiO2 02/28/17 05:10 36.9 70 16 150/78 94 Room Air Intake and Output- Last 8 Hour 02/28/17 Cumulative From/Thru 07:00 02/24/17 17:54 - 02/28/17 06:15 Intake Total 1661 ml 26916 ml Output Total 2250 ml 87832 ml Balance -589 ml 761 ml Intake Oral 1600 ml 6180 ml IV Total 61 ml 7493 ml Output Urine Total 2250 ml 47530 ml Drainage Total 0 ml 1040 ml Estimated Blood Loss 2 ml # Voids 6 # Bowel Movements 0 0 Abdomen: Soft, Other (NANCY Serosanguinous, Incisions C/D/I) SURGICAL WOUND : Wound Location/Description Incisions C/D/I, NANCY Serosanguinous Result Diagram: 02/27/17 0618 02/24/17 1800 Assessment & Plan Impression Doing well Problems: Plan Ambulate Continue NANCY to bulb suction Continue Abx Regular diet May DC tomorrow with drain if continuing to do well Dayday Cartagena MD Feb 28, 2017 11:47
[2017-02-28 12:02] VITALS: BP 117/71; PULSE 64; RESP 20; O2SAT 95
[2017-02-28 16:31] VITALS: BP 117/71; PULSE 67; RESP 18; O2SAT 94
[2017-02-28 19:35] VITALS: BP 137/75; PULSE 68; RESP 17; O2SAT 94
[2017-03-01 00:09] VITALS: BP 149/81; PULSE 62; RESP 17; O2SAT 96
[2017-03-01] MEDS: Piperacillin-Tazo 3.375 Gm Inj 3.375 GM in Dextrose 5% Minibag Plus 50 ML IV SCH ×2 (01:40→09:00)
[2017-03-01 05:12] VITALS: BP 137/73; PULSE 59; RESP 17; O2SAT 94
[2017-03-01] MEDS ORDERED: AMOX-366 PO (06:46)
--- NOTE | 2017-03-01 06:48 | PCM.DISURG ---
Surgical Discharge Instruction Date of Service Mar 01, 2017 Dates of Hospitalization Date of Hospital Admission Feb 24, 2017 at 20:45 Providers Admitting Physician: Dayday Cartagena MD Primary Care Physician: Rich Carson MD Attending Physician: Dayday Cartagena MD Discharge Diagnosis Post Operative diagnosis Gangrenous, perforated Appendicitis with diffuse peritonitis Umbilical Hernia Diet Discharge Diet: No restrictions Activity Discharge Activity-General: No lifting >10 pounds for 4-6 weeks Dressing and Incisional Care Dressing Care: Allow Steri Stripes to fall off, Other (Empty NANCY and record NANCY output daily) Hygiene: May shower Follow Up Plan Follow Up Plan Follow up in 1 week for NANCY removal Follow-up appointment: Weeks (1) Call your provider for: Fever, Chills, Shortness of breath, Increasing abdominal pain, Nausea, Vomiting, Wound redness, Increasing wound pain, Warmth to touch, Discharge @ incision, pus discharge Dayday Cartagena MD Mar 01, 2017 06:48
--- NOTE | 2017-03-01 06:51 | PCM.PNSURG ---
Subjective Date of Service: Mar 01, 2017 Visit Information: Perforated Appendicitis with Diffuse peritonitis s/p Laparoscopic Appendectomy Post-Op Day # 5 Date of Admission: Feb 24, 2017 at 20:45 Hospital Day # 6 Objective Vital Sign- Last 8 Hours Date Time Temp Pulse Resp B/P Pulse Ox O2 Delivery O2 Flow Rate FiO2 03/01/17 05:12 36.4 59 17 137/73 94 Room Air 03/01/17 00:09 36.7 62 17 149/81 96 Room Air Intake and Output- Last 8 Hour 03/01/17 Cumulative From/Thru 07:00 02/24/17 17:54 - 03/01/17 06:32 Intake Total 1676 ml 38664 ml Output Total 1750 ml 72575 ml Balance -74 ml 1627 ml Intake Oral 1440 ml 9040 ml IV Total 236 ml 8049 ml Output Urine Total 1750 ml 74405 ml Drainage Total 0 ml 1040 ml Estimated Blood Loss 2 ml # Voids 6 # Bowel Movements 0 1 Abdomen: Soft, Other (Incisions C/D/I) Result Diagram: 02/27/17 0618 02/24/17 1800 Assessment & Plan Impression Doing well Problems: Plan Discharge Home today care teaching - F/U in a week for removal Augmentin to finish a 7 day course of abx Tylenol for pain control Dayday Cartagena MD Mar 01, 2017 06:51
[2017-03-01] MEDS: Dextrose 5% Lactated Ringer's 1,000 ML IV SCH (07:21)
--- NOTE | 2017-03-01 08:10 | DRSVH ---
PROCEDURE: X-RAY CHEST, TWO VIEWS ([id number]) INDICATIONS: 71 year-old male with decreased oxygenation. TECHNIQUE: 2 views of the chest were acquired. COMPARISON: [facility], CR, XR CHEST 1VW (PORTABLE), 02/24/2017, 19:39. FINDINGS: Surgical changes and devices: None. Lungs and pleura: There is trace basal left pleural effusion. No pneumothorax. Lung volumes have norm alized, with patchy lingular and right lower lung discoid atelectasis. Mediastinum: Mediastinal contours are normal. Heart size is normal. Bones and chest wall: No suspicious bony abnormalities. Soft tissues appear unremarkable. IMPRESSION: 1. Scattered bilateral lower lung discoid atelectasis. 2. Trace basal left pleural effusion is of uncertain etiology and clinical significance. Dictated by: Corbin Ramirez M.D. on 03/01/2017 at 8:05 Approved by: Corbin Ramirez M.D. on 03/01/2017 at 8:08
[2017-03-01 08:26] VITALS: BP 138/79; PULSE 69; RESP 20; O2SAT 95
[2017-03-01] MEDS: Polyethylene Glycol (PEG) 17 Gm Powder PO SCH (08:29)
[2017-03-01] MEDS: Pantoprazole 20 mg ER24 Tablet PO SCH (08:29)
--- NOTE | 2017-03-01 12:02 | PCM.DC.SUR ---
Discharge Summary Date of Service: Mar 01, 2017 Date of Hospital Admission: Feb 24, 2017 at 20:45 Date of Operation(s): 02/24/2017 Date of Discharge: 03/01/2017 Diagnosis at Time of Discharge Primary Diagnoses: 1. Acute gangrenous perforated appendicitis with diffuse peritonitis 2. Umbilical hernia 3. Status post laparoscopic appendectomy 4. Status post laparoscopic abdominal washout 5. Status post primary repair of umbilical hernia Other Medical & Surgical History: Hypertension Obesity Hyperlipidemia Benign prostatic hyperplasia Gastroesophageal esophageal reflux disease History of Transurethral resection of prostate History of Back surgery History of Knee surgery Problems: Operation 1. Laparoscopic appendectomy 2. Laparoscopic abdominal washout 3. Primary repair of umbilical hernia Brief History and Physical: The patient is a 71-year-old gentleman in his usual state of health until a week ago when he started feeling some loss of appetite and vague discomfort in his abdomen. The pain really got worse over the last 48 hours, prompting him to come to the emergency department. It started in the right lower abdomen and got more diffuse. He had some nausea, dizziness, sweating, and had a small bowel movement this morning. He has had no vomiting. He continues to have a few bites of food and is anxious to have some liquid by mouth. Hospital Course: The patient was admitted with a history, presentation, & workup consistent with the above listed diagnoses and underwent the above-mentioned surgical procedure without complication. See operative report for details of the procedure. After surgery the patient convalesced appropriately. The patient's post surgical recovery was uneventful. Signs of bowel function eventually returned. The patient's attending General Surgeon Dr. Cartagena was stable for discharge on postoperative day #5 without significant signs of infection. At the time of discharge the patient was voiding without difficulty, exhibiting signs of bowel function, tolerating a diet without nausea or vomiting, with pain control by minimal oral analgesics, he was ambulating without assistance, with clean, dry, & intact surgical wounds without signs of significant infection, inflammation, & /or hematoma. The patient was discharged with a Edinson-Hernandez drain. The patient verbalized understanding the discussion with his Attending Gen. Surgeon with regards to his postoperative care & medical instructions, follow-up, & when to seek immediate medical attention. This included both not limited to specific instructions regarding care of of his Edinson-Hernandez surgical drain. The patient was provided with a prescription for oral antibiotics and written instructions for discharge. All questions were answered. He will follow-up appropriately postoperatively in the outpatient general surgery clinic. Pathology: Seen pathology report Disposition: Home in stable condition on postoperative day #5 Follow-up Plan: Follow-up and outpatient general surgery clinic in 1 week for Edinson-Hernandez surgical drain removal or sooner as needed. Amlodipine (Amlodipine) 10 Mg Tablet 10 MG PO DAILY (Reported) Amoxicillin/Clav K 875-125 mg (Augmentin 875-125 mg) 1 Each Tablet 1 TABLET PO BID Ascorbate Calcium (Vitamin C) 500 Mg Tablet 1,000 MG PO QAM (Reported) Aspirin (Aspirin) 81 Mg Tablet 81 MG PO DAILY (Reported) Atenolol (Atenolol) 100 Mg Tablet 100 MG PO DAILY (Reported) Gluc HCl/Csa/Maximus Hy/Hyalur AC (Glucosamine Chondroitin Cap) 1 Each Capsule 1 EACH PO DAILY (Reported) Hydrochlorothiazide (Hydrochlorothiazide) 25 Mg Tablet 25 MG PO DAILY (Reported ) Lisinopril (Lisinopril) 20 Mg Tablet 20 MG PO DAILY (Reported) Lovastatin (Lovastatin) 40 Mg Tablet 40 MG PO HS (Reported) Magnesium (Magnesium) 250 Mg Tablet 250 MG PO DAILY (Reported) Multivitamin (Multi Vitamin Daily) 1 Each Tablet 1 EACH PO QAM (Reported) Omeprazole (Omeprazole) 20 Mg Capsule.dr 20 MG PO QAM (Reported) Vitamin B Complex & Vit C No.4 (Super B Complex) 150 Mg Tablet 150 MG PO QAM ( Reported) Discharge Medications: See above copies to: Rich Carson MD, Scott PA-C Mar 01, 2017 12:02
--- NOTE | 2017-03-01 14:31 | PCM.DC.SUR ---
Discharge Summary Date of Service: Mar 01, 2017 Date of Hospital Admission: Feb 24, 2017 at 20:45 Date of Operation(s): Feb 24, 2017 Date of Discharge: Mar 01, 2017 Diagnosis at Time of Discharge 1. Acute gangrenous, perforated appendicitis with diffuse peritonitis. 2. Umbilical hernia. Problems: Brief History and Physical: The patient is a 71-year-old gentleman in his usual state of health until a week ago when he started feeling some loss of appetite and vague discomfort in his abdomen. The pain really got worse over the last 48 hours, prompting him to come to the emergency department. It started in the right lower abdomen and got more diffuse. He had some nausea, dizziness, sweating, and had a small bowel movement this morning. He has had no vomiting. He continues to have a few bites of food and is anxious to have some liquid by mouth. Consultants: None Hospital Course: The patient is a 71-year-old gentleman who has been sick for almost a week which has gotten worse in the last couple of days, prompting him to come to the emergency department. In the emergency department he was evaluated and his white count was over [address] was concerning for appendicitis, possibly perforated, prompting a surgical consultation. After discussing the risks, benefits and alternatives, he was brought to the operating room for laparoscopic appendectomy. Please refer the operative notes for details of the surgical procedure. He tolerated the procedure well and was eventually transferred to his hospital room where he remained for the balance of his hospital stay. A drain was placed intraoperatively in the right lower abdomen and antibiotics were continued. He slowly improved over the next 6 days and was found to be in stable condition postoperative day number 6 where Amlodipine (Amlodipine) 10 Mg Tablet 10 MG PO DAILY (Reported) Amoxicillin/Clav K 875-125 mg (Augmentin 875-125 mg) 1 Each Tablet 1 TABLET PO BID Ascorbate Calcium (Vitamin C) 500 Mg Tablet 1,000 MG PO QAM (Reported) Aspirin (Aspirin) 81 Mg Tablet 81 MG PO DAILY (Reported) Atenolol (Atenolol) 100 Mg Tablet 100 MG PO DAILY (Reported) Gluc HCl/Csa/Maximus Hy/Hyalur AC (Glucosamine Chondroitin Cap) 1 Each Capsule 1 EACH PO DAILY (Reported) Hydrochlorothiazide (Hydrochlorothiazide) 25 Mg Tablet 25 MG PO DAILY (Reported ) Lisinopril (Lisinopril) 20 Mg Tablet 20 MG PO DAILY (Reported) Lovastatin (Lovastatin) 40 Mg Tablet 40 MG PO HS (Reported) Magnesium (Magnesium) 250 Mg Tablet 250 MG PO DAILY (Reported) Multivitamin (Multi Vitamin Daily) 1 Each Tablet 1 EACH PO QAM (Reported) Omeprazole (Omeprazole) 20 Mg Capsule.dr 20 MG PO QAM (Reported) Vitamin B Complex & Vit C No.4 (Super B Complex) 150 Mg Tablet 150 MG PO QAM ( Reported) Herson Andersen PA-C Mar 01, 2017 14:31
--- NOTE | 2017-03-02 14:03 | PATH ---
SURGICAL PATHOLOGY Attending Physician:Dayday Cartagena MD CASE STATUS: Signed Out PATIENT NAME: KAZ LYNCH PID: [id number] : 1945 DATE COLLECTED:02/24/2017 00:00 SPECIMEN: Appendix CLINICAL HISTORY: ACUTE APPENDICITIS, EXCISION 1). APPENDIX FINAL DIAGNOSIS: 1.APPENDIX, APPENDECTOMY: - Acute appendicitis with near total necrosis with fibrinopurulent inflammation. - Inked resection margin is necrotic with fibrinopurulent inflammation. ICD10 K35.80 GROSS DESCRIPTION: The specimen is received in formalin, labeled with the patient's name, sublabeled as appendix, and consists of an intact appendix (length-9.1 cm, diameter-0.8 cm). The resection margin is received stapled. The serosa is anderson smooth, shiny, and partially covered in anderson friable exudate. The lumen contains ye solid soft material. The wall is up to 0.2 cm thick. No nodules, masses or lesions are identified. Ink code: black-resection margin. Section code: (A) appendix, serially sectioned, door to door sales representative, resection margin enface; (B) tip, bivalved, one half submitted. 03/01/17 JM MICRO DESCRIPTION: See diagnosis. ICD-9 CODES: CPT CODES: 1: 57545 Electronically Signed Out Felipe Trivedi MD [facility] Pathology [facility] [address], [place] [address] Technical component performed at [facility], [address] [place] [address] Ave[address], [place], [address]
== END 2017-03-01 12:44 | disposition home or self-care (01) | DRG 340 ==
LOC: SED 17:41 → SAS 20:27 → OBSVTOIN 20:45 → PCC 20:45 → OSC 23:36
PROVIDERS: ADMIT Student in an Organized Health Care Education/Training Program; ATTEND Student in an Organized Health Care Education/Training Program
PROC: 0WQF4ZZ Repair Abdominal Wall, Percutaneous Endoscopic Approach (ICD-10-PCS; 2017-02-24)
PROC: 3E1M38Z Irrigation of Peritoneal Cavity using Irrigating Substance, Percutaneous Approach (ICD-10-PCS; 2017-02-24)
PROC: 0DTJ4ZZ Resection of Appendix, Percutaneous Endoscopic Approach (ICD-10-PCS; principal; 2017-02-24 20:30)
DX: K35.2 Acute appendicitis with generalized peritonitis (principal); K42.9 Umbilical hernia without obstruction or gangrene; I10 Essential (primary) hypertension; E78.5 Hyperlipidemia, unspecified; K21.9 Gastro-esophageal reflux disease without esophagitis; Z87.891 Personal history of nicotine dependence